=== PATIENT | female | born 1980 ===

== ENCOUNTER 2021-06-02 09:09 | Observation (INO) | payer MEDICAID, OTHER ==
[2021-06-02] MEDS ORDERED: CYA100I IM (10:32)
== END 2021-06-02 12:30 | disposition home or self-care (01) ==
LOC: LDRP 09:09
PROVIDERS: ADMIT Obstetrics & Gynecology; ATTEND Obstetrics & Gynecology
DX: O46.92 Antepartum hemorrhage, unspecified, second trimester (principal); N93.0 Postcoital and contact bleeding; Z3A.26 26 weeks gestation of pregnancy
CPT/HCPCS: 59025; 76815; G0378